=== PATIENT | female | born 1955 | race Two or more races ===

== ENCOUNTER 2023-08-18 16:22 | Inpatient (IN) | payer OTHER ==
[~2023-08-18] VITALS: Ht 160 cm; Wt 49.9 kg
[2023-08-18] MEDS ORDERED: AMLO10TA59 PO (16:40)
[2023-08-18] MEDS ORDERED: MIRT-93 PO (16:40)
[2023-08-18] MEDS ORDERED: ATOR80TA PO (16:40)
[2023-08-18] MEDS ORDERED: SEVE2.4P3 PO (16:40)
[2023-08-18] MEDS ORDERED: ASPI-1169 PO (16:40)
[2023-08-18] MEDS ORDERED: CARV6.252 PO (16:40)
[2023-08-18] MEDS ORDERED: SACU1TAB PO (16:40)
[2023-08-18 17:57] LABS: CARBON DIOXIDE 34 mmol/L (21-32); CHLORIDE 97 mmol/L (98-107); CREATININE 4.2 mg/dL (0.6-1.3); EOSINOPHILS # (AUTO) 0.1 K/uL (0.0-0.7); GLUCOSE 103 mg/dL (74-106); MEAN CORPUSCULAR VOLUME 99.8 fL (75.5-95.3); MONOCYTES # (AUTO) 0.4 K/uL (0.1-1.30); NEUTROPHILS # (AUTO) 3.2 K/uL (1.8-8.9); POTASSIUM 4.8 mmol/L (3.5-5.1); SODIUM SERUM 136 mmol/L (136-145); UREA NITROGEN, BLOOD 33 mg/dL (7-18)
[2023-08-18 17:58] LABS: BASOPHILS % (AUTO) 0.4 % (0.0-2.0); EOSINOPHILS % (AUTO) 1.7 % (0.0-7.0); LYMPHOCYTES # (AUTO) 1.2 K/uL (0.8-4.8); LYMPHOCYTES % (AUTO) 25.5 % (20.5-51.5); MEAN CORPUSCULAR HEMOGLOBIN 33.7 uug (24.7-32.8); MEAN CORPUSCULAR HGB CONC 34 g/dL (32.3-35.6); MONOCYTES % (AUTO) 7.5 % (0.0-11.0); NEUTROPHILS % (AUTO) 64.9 % (38.5-71.5); PLATELET COUNT (AUTO) 188 K/uL (179-408); RED CELL DISTRIBUTION WIDTH 14.2 % (12.3-17.7); WHITE BLOOD COUNT (AUTO) 4.9 K/uL (3.8-11.8)
[2023-08-18 17:59] LABS: DIFFERENTIAL COMMENT 1; HEMATOCRIT 20.9 % (31.2-41.9); HEMOGLOBIN 7.1 g/dL (10.9-14.3); RED BLOOD CELL COUNT(AUTO) 2.09 MIL/uL (3.63-4.92)
[2023-08-18 18:06] LABS: ALANINE AMINOTRANSFERASE 20 U/L (14-59); ALBUMIN 3.7 g/dL (3.4-5.0); ALKALINE PHOSPHATASE 170 U/L (50-136); ASPARTATE AMINOTRANSFERASE 13 U/L (15-37); BILIRUBIN,DIRECT 0.2 mg/dL (0.0-0.2); BILIRUBIN,TOTAL 0.6 mg/dL (0.2-1.0); LIPASE 181 U/L (16-77); TOTAL PROTEIN, SERUM 7.1 g/dL (6.4-8.2)
[2023-08-18] MEDS: PANTOPRAZOLE SODIUM 40 MG VIAL IV SCH (19:45)
[2023-08-18] MEDS ORDERED: ONDANSETRON 4 MG/2 ML VIAL IV PRN (19:45)
[2023-08-19 00:01] VITALS: BP 111/54; TEMP 97.8; O2SAT 97
[2023-08-19] MEDS: ACETAMINOPHEN 325 MG TABLET PO PRN (00:58)
[2023-08-19 04:40] VITALS: BP 96/48; TEMP 97.9; O2SAT 97
[2023-08-19 06:43] LABS: BASOPHILS % (AUTO) 0.7 % (0.0-2.0); EOSINOPHILS # (AUTO) 0.1 K/uL (0.0-0.7); EOSINOPHILS % (AUTO) 2.3 % (0.0-7.0); HEMATOCRIT 24.6 % (31.2-41.9); HEMOGLOBIN 8.5 g/dL (10.9-14.3); LYMPHOCYTES # (AUTO) 1.5 K/uL (0.8-4.8); LYMPHOCYTES % (AUTO) 33.8 % (20.5-51.5); MEAN CORPUSCULAR HEMOGLOBIN 32.6 uug (24.7-32.8); MEAN CORPUSCULAR HGB CONC 35 g/dL (32.3-35.6); MEAN CORPUSCULAR VOLUME 94.5 fL (75.5-95.3); MONOCYTES # (AUTO) 0.4 K/uL (0.1-1.30); MONOCYTES % (AUTO) 8.3 % (0.0-11.0); NEUTROPHILS # (AUTO) 2.5 K/uL (1.8-8.9); NEUTROPHILS % (AUTO) 54.9 % (38.5-71.5); PLATELET COUNT (AUTO) 172 K/uL (179-408); RED CELL DISTRIBUTION WIDTH 16.1 % (12.3-17.7); WHITE BLOOD COUNT (AUTO) 4.6 K/uL (3.8-11.8)
[2023-08-19 06:51] LABS: DIFFERENTIAL COMMENT 1
[2023-08-19 06:52] LABS: CALCIUM 8.9 mg/dL (8.5-10.1); CREATININE 5.4 mg/dL (0.6-1.3); MAGNESIUM 2.2 mg/dL (1.8-2.4); PHOSPHOROUS 3.8 mg/dL (2.5-4.9); POTASSIUM 4.5 mmol/L (3.5-5.1)
[2023-08-19 07:08] LABS: THYROID STIMULATING HORMONE 1.04 mIU/mL (0.358-3.740)
[2023-08-19 07:47] VITALS: BP 126/60; TEMP 97.9; O2SAT 97
[2023-08-19] MEDS ORDERED: AMLODIPINE 10 MG TABLET PO SCH (09:00)
[2023-08-19] MEDS: ATORVASTATIN 40 MG TABLET PO SCH (09:00)
[2023-08-19] MEDS ORDERED: SEVELAMER CARBONATE PO SCH (09:00)
[2023-08-19] MEDS ORDERED: CARVEDILOL 6.25 MG TABLET PO SCH (09:00)
[2023-08-19] MEDS ORDERED: VASOPRESSIN 20 UNIT/ML VIAL ONE (11:48)
[2023-08-19] MEDS ORDERED: MIDAZOLAM HCL 2 MG/2 ML VIAL ONE (11:48)
[2023-08-19] MEDS ORDERED: KETAMINE HCL 500 MG/5 ML VIAL ONE (11:48)
[2023-08-19] MEDS: SACUBITRIL/VALSARTAN 24 MG-26 TABLET PO SCH (12:11)
[2023-08-19] MEDS ORDERED: TICA60TA PO (12:13)
[2023-08-19 13:19] VITALS: BP 122/69; TEMP 97.7; O2SAT 99
[2023-08-19] MEDS: SEVELAMER CARBONATE 800 MG POWD.PACK PO SCH (14:04)
[2023-08-19 16:32] VITALS: BP 119/53; TEMP 98.2; O2SAT 98
[2023-08-19] MEDS ORDERED: MIRTAZAPINE 15 MG TABLET PO SCH (18:00)
[2023-08-19 20:18] VITALS: BP 95/47; TEMP 98.4; O2SAT 96
[2023-08-20 00:35] VITALS: BP 116/48; TEMP 98.4; O2SAT 100
[2023-08-20 05:10] VITALS: BP 100/56; TEMP 98.2; O2SAT 97
[2023-08-20 07:26] LABS: BASOPHILS % (AUTO) 0.5 % (0.0-2.0); EOSINOPHILS # (AUTO) 0.1 K/uL (0.0-0.7); EOSINOPHILS % (AUTO) 2.2 % (0.0-7.0); HEMATOCRIT 25.1 % (31.2-41.9); HEMOGLOBIN 8.5 g/dL (10.9-14.3); LYMPHOCYTES # (AUTO) 1.5 K/uL (0.8-4.8); LYMPHOCYTES % (AUTO) 26.7 % (20.5-51.5); MEAN CORPUSCULAR HEMOGLOBIN 32.4 uug (24.7-32.8); MEAN CORPUSCULAR HGB CONC 34 g/dL (32.3-35.6); MEAN CORPUSCULAR VOLUME 95.6 fL (75.5-95.3); MONOCYTES # (AUTO) 0.3 K/uL (0.1-1.30); MONOCYTES % (AUTO) 5.9 % (0.0-11.0); NEUTROPHILS # (AUTO) 3.5 K/uL (1.8-8.9); NEUTROPHILS % (AUTO) 64.7 % (38.5-71.5); PLATELET COUNT (AUTO) 177 K/uL (179-408); RED BLOOD CELL COUNT(AUTO) 2.62 MIL/uL (3.63-4.92); RED CELL DISTRIBUTION WIDTH 15.4 % (12.3-17.7); WHITE BLOOD COUNT (AUTO) 5.5 K/uL (3.8-11.8)
[2023-08-20 07:40] LABS: DIFFERENTIAL COMMENT 1
[2023-08-20 07:48] LABS: CALCIUM 8.9 mg/dL (8.5-10.1); MAGNESIUM 2.5 mg/dL (1.8-2.4); PHOSPHOROUS 4.1 mg/dL (2.5-4.9); POTASSIUM 5.1 mmol/L (3.5-5.1)
[2023-08-20 08:00] VITALS: BP 124/55; TEMP 98.2; O2SAT 97
[2023-08-20 12:00] VITALS: BP 112/49; TEMP 98.2; O2SAT 100
[2023-08-20 16:00] VITALS: BP 116/55; TEMP 98.2; O2SAT 97
[2023-08-20] MEDS ORDERED: PANT40TA2 PO (17:22)
[2023-08-20 19:30] VITALS: BP 122/65; TEMP 97.8; O2SAT 99
== END 2023-08-20 21:00 | disposition home or self-care (01) | DRG 241 ==
LOC: ER 16:24 → TELE3 21:02
PROVIDERS: ADMIT Nurse Practitioner Family; ATTEND Nurse Practitioner Family
PROC: 30233N1 Transfusion of Nonautologous Red Blood Cells into Peripheral Vein, Percutaneous Approach (ICD-10-PCS; principal; 2023-08-18)
PROC: 0DB68ZX Excision of Stomach, Via Natural or Artificial Opening Endoscopic, Diagnostic (ICD-10-PCS; 2023-08-19)
DX: K29.71 Gastritis, unspecified, with bleeding (principal); I13.11 Hypertensive heart and chronic kidney disease without heart failure, with stage 5 chronic kidney disease, or end stage renal disease; D62 Acute posthemorrhagic anemia; J43.8 Other emphysema; D71 Functional disorders of polymorphonuclear neutrophils; N18.6 End stage renal disease; I25.10 Atherosclerotic heart disease of native coronary artery without angina pectoris; Z95.5 Presence of coronary angioplasty implant and graft; E78.5 Hyperlipidemia, unspecified; Z99.2 Dependence on renal dialysis; I70.0 Atherosclerosis of aorta; R74.8 Abnormal levels of other serum enzymes; Z79.82 Long term (current) use of aspirin; Z79.899 Other long term (current) drug therapy; Z79.01 Long term (current) use of anticoagulants
CPT/HCPCS: 36415; 71045; 83690; 83735; 84100; 84443; 84484; 85025; 85730; 86850; 86900; 86901; 86920; 93005; A4663; G0378; J2250; J2470; J3490; J7040; P9016

== ENCOUNTER 2024-05-11 22:35 | Inpatient (IN) | payer OTHER ==
[~2024-05-11] VITALS: Ht 162.6 cm; Wt 52.9 kg
[~2024-05-11 22:35] MED LIST: AMLO10TA59 PO; ASPI-1169 PO; ATOR80TA PO; PANT40TA2 PO; SACU1TAB PO; SEVE2.4P3 PO; TICA60TA PO; TRAM50TA2 PO
[2024-05-11 23:20] LABS: BASOPHILS % (AUTO) 0.8 % (0.0-2.0); EOSINOPHILS # (AUTO) 0.1 K/uL (0.0-0.7); EOSINOPHILS % (AUTO) 1.3 % (0.0-7.0); HEMATOCRIT 31.7 % (31.2-41.9); LYMPHOCYTES # (AUTO) 1.1 K/uL (0.8-4.8); LYMPHOCYTES % (AUTO) 20.1 % (20.5-51.5); MEAN CORPUSCULAR HEMOGLOBIN 27.9 uug (24.7-32.8); MEAN CORPUSCULAR HGB CONC 32 g/dL (32.3-35.6); MEAN CORPUSCULAR VOLUME 88.1 fL (75.5-95.3); MONOCYTES # (AUTO) 0.4 K/uL (0.1-1.30); MONOCYTES % (AUTO) 7.3 % (0.0-11.0); NEUTROPHILS # (AUTO) 3.8 K/uL (1.8-8.9); NEUTROPHILS % (AUTO) 70.5 % (38.5-71.5); PLATELET COUNT (AUTO) 286 K/uL (179-408); RED CELL DISTRIBUTION WIDTH 22.4 % (12.3-17.7); WHITE BLOOD COUNT (AUTO) 5.4 K/uL (3.8-11.8)
[2024-05-11] MEDS ORDERED: CARV3.122 PO (23:25)
[2024-05-11] MEDS ORDERED: VIT1TABL46 PO (23:25)
[2024-05-11 23:26] LABS: DIFFERENTIAL COMMENT 1
[2024-05-11 23:27] LABS: CALCIUM 8.5 mg/dL (8.5-10.1); CREATININE 7.2 mg/dL (0.6-1.3); POTASSIUM 4.3 mmol/L (3.5-5.1)
[2024-05-11 23:33] LABS: BILIRUBIN,DIRECT 0.2 mg/dL (0.0-0.2); BILIRUBIN,TOTAL 0.6 mg/dL (0.2-1.0); TOTAL PROTEIN, SERUM 7.4 g/dL (6.4-8.2)
[2024-05-11] MEDS ORDERED: PANTOPRAZOLE SODIUM 40 MG VIAL ONE (23:42)
[2024-05-11] MEDS: PANTOPRAZOLE SODIUM IV 80 MG in IV DEXTROSE 5% 100 ML IV ONE (23:52)
[2024-05-12] MEDS ORDERED: ONDANSETRON 4 MG/2 ML VIAL IV PRN (00:30)
[2024-05-12] MEDS ORDERED: ACETAMINOPHEN 325 MG TABLET PO PRN (00:30)
[2024-05-12] MEDS ORDERED: MAGNESIUM HYDROXIDE 30 ML LIQUID UDC PO PRN (00:30)
[2024-05-12 02:03] VITALS: BP 141/58; TEMP 98.3; O2SAT 98
[2024-05-12 06:00] VITALS: BP 135/61; TEMP 98.1; O2SAT 98
[2024-05-12 07:12] LABS: BASOPHILS % (AUTO) 0.7 % (0.0-2.0); EOSINOPHILS # (AUTO) 0.1 K/uL (0.0-0.7); EOSINOPHILS % (AUTO) 2.3 % (0.0-7.0); HEMATOCRIT 29.6 % (31.2-41.9); HEMOGLOBIN 9.7 g/dL (10.9-14.3); LYMPHOCYTES # (AUTO) 1.1 K/uL (0.8-4.8); LYMPHOCYTES % (AUTO) 25.8 % (20.5-51.5); MEAN CORPUSCULAR HEMOGLOBIN 28.7 uug (24.7-32.8); MEAN CORPUSCULAR HGB CONC 33 g/dL (32.3-35.6); MEAN CORPUSCULAR VOLUME 87.8 fL (75.5-95.3); MONOCYTES # (AUTO) 0.4 K/uL (0.1-1.30); MONOCYTES % (AUTO) 8.5 % (0.0-11.0); NEUTROPHILS # (AUTO) 2.7 K/uL (1.8-8.9); NEUTROPHILS % (AUTO) 62.7 % (38.5-71.5); PLATELET COUNT (AUTO) 255 K/uL (179-408); RED BLOOD CELL COUNT(AUTO) 3.37 MIL/uL (3.63-4.92); WHITE BLOOD COUNT (AUTO) 4.3 K/uL (3.8-11.8)
[2024-05-12 07:22] LABS: CALCIUM 8.1 mg/dL (8.5-10.1); DIFFERENTIAL COMMENT 1; MAGNESIUM 2.4 mg/dL (1.8-2.4); PHOSPHOROUS 4.8 mg/dL (2.5-4.9); POTASSIUM 4.1 mmol/L (3.5-5.1)
[2024-05-12 07:24] LABS: CREATININE 7.7 mg/dL (0.6-1.3)
[2024-05-12] MEDS: PANTOPRAZOLE SODIUM 40 MG VIAL IV SCH (08:32)
[2024-05-12 11:30] VITALS: BP 143/58; TEMP 98.4; O2SAT 97
[2024-05-12 15:39] VITALS: BP 142/54; TEMP 98; O2SAT 98
[2024-05-12] MEDS ORDERED: SEVELAMER CARBONATE PO SCH (17:00)
[2024-05-12] MEDS: SEVELAMER CARBONATE 800 MG POWD.PACK PO SCH (17:43)
[2024-05-12 19:35] VITALS: BP 159/64; TEMP 98; O2SAT 99
[2024-05-12] MEDS ORDERED: hydrALAZINE HCL 20 MG/1 ML VIAL IV PRN (20:30)
[2024-05-12] MEDS: ATORVASTATIN 40 MG TABLET PO SCH (20:53)
[2024-05-13 06:11] VITALS: BP 149/53; TEMP 97.8; O2SAT 94
[2024-05-13 07:26] LABS: BASOPHILS % (AUTO) 1.1 % (0.0-2.0); EOSINOPHILS # (AUTO) 0.1 K/uL (0.0-0.7); EOSINOPHILS % (AUTO) 3.1 % (0.0-7.0); HEMATOCRIT 31.6 % (31.2-41.9); HEMOGLOBIN 10.3 g/dL (10.9-14.3); LYMPHOCYTES # (AUTO) 0.8 K/uL (0.8-4.8); LYMPHOCYTES % (AUTO) 21.9 % (20.5-51.5); MEAN CORPUSCULAR HEMOGLOBIN 28.7 uug (24.7-32.8); MEAN CORPUSCULAR HGB CONC 33 g/dL (32.3-35.6); MEAN CORPUSCULAR VOLUME 88.5 fL (75.5-95.3); MONOCYTES # (AUTO) 0.2 K/uL (0.1-1.30); MONOCYTES % (AUTO) 7.1 % (0.0-11.0); NEUTROPHILS # (AUTO) 2.3 K/uL (1.8-8.9); NEUTROPHILS % (AUTO) 66.8 % (38.5-71.5); PLATELET COUNT (AUTO) 260 K/uL (179-408); RED BLOOD CELL COUNT(AUTO) 3.57 MIL/uL (3.63-4.92); RED CELL DISTRIBUTION WIDTH 22.5 % (12.3-17.7); WHITE BLOOD COUNT (AUTO) 3.4 K/uL (3.8-11.8)
[2024-05-13 07:42] LABS: CALCIUM 8.3 mg/dL (8.5-10.1); MAGNESIUM 2.6 mg/dL (1.8-2.4); PHOSPHOROUS 5.3 mg/dL (2.5-4.9); POTASSIUM 5.4 mmol/L (3.5-5.1)
[2024-05-13 07:51] LABS: DIFFERENTIAL COMMENT 1
[2024-05-13 08:03] LABS: CREATININE 9.9 mg/dL (0.6-1.3)
[2024-05-13] MEDS ORDERED: Medication Not On Formulary EA (Atorvastatin Calcium (Lipitor) 80 MG) PO SCH (09:00)
[2024-05-13] MEDS: AMLODIPINE 10 MG TABLET PO SCH (09:17)
[2024-05-13 11:39] VITALS: BP 146/53; TEMP 97.6; O2SAT 98
[2024-05-13] MEDS: SEVELAMER CARBONATE 800 MG TABLET PO SCH (12:17)
[2024-05-13 15:41] VITALS: BP 134/60; TEMP 98; O2SAT 99
[2024-05-13] MEDS: PANTOPRAZOLE SODIUM 40 MG TABLET.DR PO SCH (17:04)
[2024-05-14 07:09] LABS: HEPATITIS B CORE AB, IgM Negative (Negative); HEPATITIS B CORE AB, TOTAL Negative (Negative); HEPATITIS B SURFACE AB, QUAL Reactive (.); HEPATITIS B SURFACE AG Negative (Negative); HEPATITIS Be ANTIGEN Negative (Negative); HEPATITIS C VIRUS ANTIBODY Non Reactive (Non Reactive)
== END 2024-05-13 18:49 | disposition home or self-care (01) | DRG 194 ==
LOC: ER 22:48 → MEDSURG3 05-12 00:30
PROVIDERS: ATTEND Nurse Practitioner Family
PROC: 5A1D70Z Performance of Urinary Filtration, Intermittent, Less than 6 Hours Per Day (ICD-10-PCS; principal; 2024-05-13)
DX: I13.2 Hypertensive heart and chronic kidney disease with heart failure and with stage 5 chronic kidney disease, or end stage renal disease (principal); N18.6 End stage renal disease; D63.1 Anemia in chronic kidney disease; M89.8X9 Other specified disorders of bone, unspecified site; I25.10 Atherosclerotic heart disease of native coronary artery without angina pectoris; Z95.5 Presence of coronary angioplasty implant and graft; E78.5 Hyperlipidemia, unspecified; I50.22 Chronic systolic (congestive) heart failure; Z99.2 Dependence on renal dialysis; Z79.02 Long term (current) use of antithrombotics/antiplatelets; Z87.19 Personal history of other diseases of the digestive system
CPT/HCPCS: 36415; 71045; 83735; 84100; 84484; 85025; 85730; 86704; 86705; 86706; 86803; 86850; 86900; 86901; 87340; 87350; 87521; A4606; A4663; G0378; J2470; J7040